=== PATIENT | male | born 1950 | race Caucasian/White ===

== ENCOUNTER 2018-02-12 21:45 | Inpatient (IN) | payer MEDICARE ==
[~2018-02-12] VITALS: Ht 170.2 cm; Wt 65.3 kg
--- NOTE | 2018-02-12 21:56 | NUR ---
Dr. Collins at bedside for MSE.
--- NOTE | 2018-02-12 22:13 | NUR ---
Xray at bedside.
[2018-02-12 22:14] LABS: BASOPHILS % (AUTO) 0.6 % (0.0-2.0); EOSINOPHILS # (AUTO) 0.2 K/uL (0.0-0.7); EOSINOPHILS % (AUTO) 3.2 % (0.0-7.0); HEMOGLOBIN 12.9 g/dL (12.5-16.3); LYMPHOCYTES # (AUTO) 1.2 K/uL (20.0-40.0); LYMPHOCYTES % (AUTO) 19.5 % (20.5-51.5); MEAN CORPUSCULAR HEMOGLOBIN 37.1 uug (23.8-33.4); MEAN CORPUSCULAR HGB CONC 34 g/dL (32.5-36.3); MEAN CORPUSCULAR VOLUME 109.2 fL (73.0-96.2); MONOCYTES # (AUTO) 0.8 K/uL (2.0-10.0); NEUTROPHILS # (AUTO) 3.8 K/uL (1.8-8.9); NEUTROPHILS % (AUTO) 63.7 % (38.5-71.5); PLATELET COUNT (AUTO) 146 K/uL (152-348); RED BLOOD CELL COUNT(AUTO) 3.48 MIL/uL (4.06-5.63)
[2018-02-12] MEDS ORDERED: FOLI1TAB16 PO (22:17)
[2018-02-12] MEDS ORDERED: OLAN5TAB3 PO (22:17)
[2018-02-12] MEDS ORDERED: MIRT15TA7 PO (22:17)
[2018-02-12] MEDS ORDERED: THIA100T13 PO (22:17)
[2018-02-12] MEDS ORDERED: CYAN100T3 PO (22:17)
[2018-02-12] MEDS ORDERED: POLY255P2 PO (22:17)
[2018-02-12] MEDS ORDERED: TRAZ-182 PO (22:17)
[2018-02-12] MEDS ORDERED: ACET325T53 PO (22:17)
[2018-02-12] MEDS ORDERED: PANT40TA4 PO (22:17)
[2018-02-12] MEDS ORDERED: HALO1TAB PO (22:17)
[2018-02-12] MEDS ORDERED: MULT-213 PO (22:17)
[2018-02-12] MEDS ORDERED: NICO-625 TD (22:17)
[2018-02-12 22:25] LABS: CREATININE 0.9 mg/dL (0.6-1.3); POTASSIUM 4.3 mmol/L (3.5-5.1)
[2018-02-12 22:30] LABS: BILIRUBIN,DIRECT 0.1 mg/dL (0.0-0.2); BILIRUBIN,TOTAL 0.3 mg/dL (0.2-1.0); TOTAL PROTEIN, SERUM 6.5 g/dL (6.4-8.2)
[2018-02-12 22:38] LABS: THYROID STIMULATING HORMONE 3.67 mIU/mL (0.358-3.740)
--- NOTE | 2018-02-12 23:00 | NUR ---
Report given to Leti MENDOZA MHU.
[2018-02-12] MEDS ORDERED: LORAZEPAM 0.5 MG TABLET PO PRN (23:15)
[2018-02-12] MEDS ORDERED: LORAZEPAM 2 MG/1 ML VIAL IV ONE (23:15)
[2018-02-12] MEDS ORDERED: MAGNESIUM HYDROXIDE 30 ML LIQUID UDC PO PRN (23:15)
[2018-02-12] MEDS ORDERED: MAG HYDROX/AL HYDROX/SIMETH 30 ML LIQUID UDC PO PRN (23:15)
[2018-02-12] MEDS ORDERED: LORAZEPAM 2 MG/1 ML VIAL ONE (23:29)
[2018-02-12] MEDS ORDERED: ZOLPIDEM 5 MG TABLET PO PRN (23:45)
--- NOTE | 2018-02-12 23:55 | NUR ---
ADMISSION NOTE: PER 5150,Pt ARRIVED TO THE MEDICAL FLOOR AT [facility] FOR [facility]TOH-INDUCED PANCREATITIS AND DELIRIUM. Pt WAS THEN ADMITTED TO [facility] ON A HOLD FOR GD, BUT RETURNED TO [facility] FOR MEDICAL REASONS. HAS NO INSIGHT INTO SITUATION OR WHY HE WAS AT THE HOSPITAL. CONFUSED, DISORIENTED, AND AGITATED AT TIMES. UPON EVALUATION BY PSYCHIATRIST, Pt WAS VISUALLY HALLUCINATING SEEING HIS GIRLFRIEND IN BED. 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 REMAINS INTERMITTENTLY AGITATED WANTING TO LEAVE. UNABLE TO FORM A REASONABLE PLAN FOR SAFETY OR AFTERCARE DUE TO POOR JUDGEMENT AND IMPAIRED COGNITION. Pt GIVEN PATIENT RIGHTS HANDBOOK AND ADVISEMENT UPON ADMISSION. A+Ox1, Pt CONFUSED, DISORIENTED, AND FORGETFUL. DELUSIONAL, Pt BELIEVES HE IS IN [place], [place]. WHEN ASKED WHAT BROUGHT HIM TO THE HOSPITAL, Pt STATED, "I DON'T KNOW, I DON'T REMEMBER." Pt GIVES NON-SENSICAL AND IRRELEVANT ANSWERS TO QUESTIONS, IS DISORGANIZED AND TANGENTIAL IN THOUGHT PROCESS, REMAINS WITH POOR INSIGHT. Pt IS HYPERVERBAL AND EXHIBITS PRESSURED SPEECH WITH FLAT AFFECT. APPEARANCE IS DISHEVELED AND MALODOROUS, Pt URINATED ON HIMSELF DURING ASSESSMENT, AND WAS THEN SHOWERED WITH THE ASSISTANCE OF STAFF. Pt ORIENTED TO THE UNIT, THE PHONE, THE BATHROOMS, AND HIS ROOM. UNIT RULES AND PATIENT RIGHTS EXPLAINED, THOUGH Pt REQUIRES REINFORCEMENT D/T IMPAIRED COGNITION. UNABLE TO SIGN ADMISSION PAPERWORK D/T CONFUSION. PRESENTS WITH UNSTEADY GAIT, AND BLE WEAKNESS, FALLS PRECAUTIONS IMPLEMENTED, Q 15 MINUTE SAFETY CHECKS MAINTAINED. VS STABLE, DENIES PAIN. SKIN ASSESSMENT COMPLETED WITH LICENSED MALE STAFF PRESENT, 2 SMALL CIRCULAR SCABS NOTED TO (L) INNER GLUTEAL AREA, NO S/S OF INFECTION, Pt REFUSED PHOTOS OF HIS WOUND AND FACE. DR GUSMAN AND DR DUTTA NOTIFIED OF ADMISSION, ORDERS RECEIVED, MEDICATIONS RECONCILED. CONTRABAND PLACED IN UNIT LOCKER. IN NO ACUTE PHYSICAL DISTRESS.
[2018-02-13] MEDS ORDERED: LORAZEPAM 2 MG/1 ML VIAL IM ONE
[2018-02-13 07:05] LABS: BASOPHILS % (AUTO) 0.8 % (0.0-2.0); EOSINOPHILS # (AUTO) 0.3 K/uL (0.0-0.7); EOSINOPHILS % (AUTO) 5.6 % (0.0-7.0); HEMATOCRIT 38.3 % (36.7-47.1); HEMOGLOBIN 13.1 g/dL (12.5-16.3); LYMPHOCYTES # (AUTO) 1.3 K/uL (20.0-40.0); LYMPHOCYTES % (AUTO) 23.3 % (20.5-51.5); MEAN CORPUSCULAR HEMOGLOBIN 37.2 uug (23.8-33.4); MEAN CORPUSCULAR HGB CONC 34 g/dL (32.5-36.3); MEAN CORPUSCULAR VOLUME 108.9 fL (73.0-96.2); MONOCYTES # (AUTO) 0.7 K/uL (2.0-10.0); MONOCYTES % (AUTO) 13.4 % (0.0-11.0); NEUTROPHILS # (AUTO) 3.2 K/uL (1.8-8.9); NEUTROPHILS % (AUTO) 56.9 % (38.5-71.5); PLATELET COUNT (AUTO) 147 K/uL (152-348); RED BLOOD CELL COUNT(AUTO) 3.51 MIL/uL (4.06-5.63); WHITE BLOOD COUNT (AUTO) 5.6 K/uL (3.6-10.2)
[2018-02-13 07:30] VITALS: BP 103/68
[2018-02-13] MEDS ORDERED: PANTOPRAZOLE SODIUM 40 MG TABLET.DR PO SCH (07:30)
[2018-02-13 07:40] LABS: CREATININE 0.8 mg/dL (0.6-1.3); MAGNESIUM 1.6 mg/dL (1.8-2.4); PHOSPHOROUS 5.3 mg/dL (2.5-4.9); POTASSIUM 3.7 mmol/L (3.5-5.1)
[2018-02-13] MEDS: MIRALAX 17 GM POWD.PACK PO SCH (08:42)
[2018-02-13] MEDS: THIAMINE HCL 100 MG TABLET PO SCH (08:42)
[2018-02-13] MEDS: CYANOCOBALAMIN 100 MCG TABLET PO SCH (08:42)
[2018-02-13] MEDS: NICOTINE 14 MG/24HR PATCH TD SCH (08:42)
[2018-02-13] MEDS: FOLIC ACID 1 MG TABLET PO SCH (08:42)
[2018-02-13] MEDS: MULTIVIT, IRON, MIN NO. 8, FA TABLET PO SCH (08:42)
[2018-02-13] MEDS ORDERED: MIRALAX 17 GM POWD.PACK PO SCH (09:00)
[2018-02-13] MEDS ORDERED: LORAZEPAM 0.5 MG TABLET PO PRN (09:30)
[2018-02-13] MEDS ORDERED: MAGNESIUM OXIDE 400 MG TABLET PO ONE (12:00)
[2018-02-13] MEDS: LORAZEPAM 1 MG TABLET PO PRN ×2 (13:29→19:04)
[2018-02-13 17:23] VITALS: BP 92/72
[2018-02-13 19:56] VITALS: BP 80/53
--- NOTE | 2018-02-13 20:00 | NUR ---
Received patient in chair, oriented to name only. Was medicated with Ativan at 1900. No acute distress noted. Speech in whispering voice sometimes hard to understand. Doesn't remember reason why he's in the hospital. Reoriented to place and time. Fall and safety precautions maintained.
[2018-02-13 20:10] VITALS: BP 95/59
[2018-02-13] MEDS: QUETIAPINE FUMARATE 25 MG TABLET PO SCH ×2 (21:00→22:25)
--- NOTE | 2018-02-13 21:00 | NUR ---
Seroquel dose held for now. Hypotensive. Snacks provided. Will monitor.
[2018-02-13 21:05] VITALS: BP 93/58
--- NOTE | 2018-02-13 22:00 | NUR ---
Agitated, trying to get out of the chair. Tremulous. Ambulated with walker and assistance.
[2018-02-13 22:10] VITALS: BP 110/72
--- NOTE | 2018-02-13 22:20 | NUR ---
Seen by Battery Test Engineer. Back in chair but with increasing agitation. Mumbles at time; "someone orders me" patient states. But when asked for details patient has no appropriate answer. With flight of ideas. Seroquel dose given with Tylenol.
[2018-02-13] MEDS: ACETAMINOPHEN 325 MG TABLET PO PRN (22:24)
--- NOTE | 2018-02-13 23:00 | NUR ---
Sleeping after Seroquel and Tylenol. Remains in chair and with close monitoring.
--- NOTE | 2018-02-14 | NUR ---
Awake, trying to get out of the chair to stand up. Ambulated with walker and assistance, but patient is tremulous, unsteady. Advised appropriately and placed back in chair.
--- NOTE | 2018-02-14 00:17 | NUR ---
Extremely agitated. Banging on the table and became mildly combative with Zana BLACK TOP RAKER. Patient reoriented to place and reasons of his hospitalization. BP 82/41; asymptomatic. Snacks provided. Monitored closely.
--- NOTE | 2018-02-14 03:06 | NUR ---
Remains in chair with constant monitoring. Still with periods of agitation and combativeness. Very disoriented, confused. Unable to engaged in conversation; claims he has children but doesn't remember their names. States, he's in [facility]. Needs frequent redirection and reorientation. Fluid intake encouraged, but patient threw a cup of water to RN's back. BP=98/66.
[2018-02-14] MEDS: PANTOPRAZOLE SODIUM 40 MG TABLET.DR PO SCH (06:12)
[2018-02-14] MEDS: LORAZEPAM 1 MG TABLET PO PRN ×2 (06:12→22:17)
--- NOTE | 2018-02-14 06:40 | NUR ---
Slept for 1.3 hours. Ativan given at 0612; effective. Patient now calm and cooperative. Assisted to the BR; urine sample obtained and sent to lab.
[2018-02-14 07:30] VITALS: BP 86/45
[2018-02-14 07:48] LABS: *BILIRUBIN,URIN NEGATIVE (NEGATIVE); *BLOOD, URINE NEGATIVE (NEGATIVE); *CLARITY,URINE CLEAR (CLEAR); *COLOR,URINE YELLOW (YELLOW); *KETONES,URINE NEGATIVE (NEGATIVE); *PROTEIN,URINE NEGATIVE (NEGATIVE); LEUKOCYTE ESTERASE ,URINE NEGATIVE (NEGATIVE); NITRITE, URINE NEGATIVE (NEGATIVE); PH,URINE 5.5 (5.0-8.0); UGLUCOSE NEGATIVE (NEGATIVE)
[2018-02-14 07:58] LABS: CREATININE 0.9 mg/dL (0.6-1.3); POTASSIUM 3.5 mmol/L (3.5-5.1)
[2018-02-14 08:08] LABS: BACTERIA,URINE FEW /HPF (NONE SEEN); MUCUS,URINE FEW /LPF (0-FEW); RBC,URINE NONE SEEN /HPF (0-3); SQUAMOUS EPITHELIAL CELL,UR FEW /HPF (NONE SEEN); WBC,URINE 0-3 /HPF (0-3)
[2018-02-14 08:12] LABS: *AMPHETAMINE, URINE NEGATIVE (NEGATIVE); *BARBITURATE, URINE NEGATIVE (NEGATIVE); *CANNABINOID, URINE NEGATIVE (NEGATIVE); *COCCAINE, URINE NEGATIVE (NEGATIVE); *OPIATE, URINE NEGATIVE (NEGATIVE); *PHENCYCLIDINE SCREEN,URINE NEGATIVE (NEGATIVE)
[2018-02-14] MEDS: FOLIC ACID 1 MG TABLET PO SCH (08:39)
[2018-02-14] MEDS: CYANOCOBALAMIN 100 MCG TABLET PO SCH (08:39)
[2018-02-14] MEDS: MIRALAX 17 GM POWD.PACK PO SCH (08:39)
[2018-02-14] MEDS: NICOTINE 14 MG/24HR PATCH TD SCH (08:39)
[2018-02-14] MEDS: MULTIVIT, IRON, MIN NO. 8, FA TABLET PO SCH (08:39)
[2018-02-14] MEDS: THIAMINE HCL 100 MG TABLET PO SCH (08:39)
--- NOTE | 2018-02-14 13:58 | NUR ---
Initial Discharge Plan: Patient is homeless and will need SNF placement due to current level of functioning. Patient has Medicare Part A ONLY. Patient's brother, Mario Alberto [[phone]] is aware and agreeable to patient being placed at a SNF. mold yard worker will collaborate with MD for patient plan of care. mold yard worker will continue to work on a safe and proper discharge plan.
[2018-02-14 16:07] VITALS: BP 103/55
--- NOTE | 2018-02-14 18:08 | NUR ---
AGITATED, SITTER AT BEDSIDE. EATING WELL WITH ASSIST. ENCOURAGED TO TOILET. WATCHING TV AT THIS TIME. WILL CONT TO MONITOR.
[2018-02-14 19:31] VITALS: BP 118/74
[2018-02-14] MEDS: QUETIAPINE FUMARATE 25 MG TABLET PO SCH (20:58)
[2018-02-14] MEDS ORDERED: QUETIAPINE FUMARATE 25 MG TABLET PO SCH (21:00)
--- NOTE | 2018-02-14 21:30 | NUR ---
received to care, up in efrain chair, appearing restless, and agitated, mumbling to self, 1;1 sitter remains at side, for safety. compliant with medications and staff direction. po fluids given. as of 2129, he remains restless, but easy to redirect. will continue to monitor closely.
[2018-02-14] MEDS: ACETAMINOPHEN 325 MG TABLET PO PRN (22:16)
--- NOTE | 2018-02-14 22:17 | NUR ---
remains agitated, and restless. PRN ativan was given, at this time. sitter remains at bedside.
[2018-02-15] MEDS: PANTOPRAZOLE SODIUM 40 MG TABLET.DR PO SCH (07:00)
[2018-02-15 08:00] VITALS: BP 89/53
--- NOTE | 2018-02-15 08:30 | NUR ---
Gps/Tube Repairer- Asleep during the initial rounds, no distress .Had low B/P initial check 89/53 HR 68 . Out of bed to the bathroom w/ 2 staff assisting, patient , patient needed verbal cueing, stiffness to extremities, figity and occ. fine tremors noted when initiating tasks. Voided, dark frances urine, fluids offered, encouraged, needed assist with meals r/t to focc fine tremors and stiffness when initiating simple tasks. Remains on 1:1 Nirsing supervision (sitter) for safety.
[2018-02-15 09:00] VITALS: BP 121/77
[2018-02-15] MEDS: THIAMINE HCL 100 MG TABLET PO SCH (09:08)
[2018-02-15] MEDS: MIRALAX 17 GM POWD.PACK PO SCH (09:08)
[2018-02-15] MEDS: FOLIC ACID 1 MG TABLET PO SCH (09:08)
[2018-02-15] MEDS: MULTIVIT, IRON, MIN NO. 8, FA TABLET PO SCH (09:08)
[2018-02-15] MEDS: CYANOCOBALAMIN 100 MCG TABLET PO SCH (09:08)
[2018-02-15] MEDS: NICOTINE 14 MG/24HR PATCH TD SCH (09:09)
[2018-02-15 20:00] VITALS: BP 114/68
[2018-02-15] MEDS: QUETIAPINE FUMARATE 25 MG TABLET PO SCH (20:03)
--- NOTE | 2018-02-15 22:00 | NUR ---
received to care, up in efrain chair, pleasant, but confused, upon approach. 1 to 1 sitter remains at side, for safety. compliant with medications and staff direction. as of 2199, he appears to be asleep. no distress noted, will continue to monitor closely.
--- NOTE | 2018-02-16 06:30 | NUR ---
slept 7.5 hours total. continues to sleep. sitter remains at side. no distress noted.
[2018-02-16 07:14] LABS: BASOPHILS % (AUTO) 0.7 % (0.0-2.0); EOSINOPHILS # (AUTO) 0.2 K/uL (0.0-0.7); EOSINOPHILS % (AUTO) 5.6 % (0.0-7.0); HEMATOCRIT 37.1 % (36.7-47.1); HEMOGLOBIN 12.9 g/dL (12.5-16.3); LYMPHOCYTES # (AUTO) 1.2 K/uL (20.0-40.0); LYMPHOCYTES % (AUTO) 27.2 % (20.5-51.5); MEAN CORPUSCULAR HEMOGLOBIN 37.5 uug (23.8-33.4); MEAN CORPUSCULAR HGB CONC 35 g/dL (32.5-36.3); MEAN CORPUSCULAR VOLUME 107.9 fL (73.0-96.2); MONOCYTES # (AUTO) 0.6 K/uL (2.0-10.0); MONOCYTES % (AUTO) 13.8 % (0.0-11.0); NEUTROPHILS # (AUTO) 2.4 K/uL (1.8-8.9); NEUTROPHILS % (AUTO) 52.7 % (38.5-71.5); PLATELET COUNT (AUTO) 172 K/uL (152-348); RED BLOOD CELL COUNT(AUTO) 3.44 MIL/uL (4.06-5.63); WHITE BLOOD COUNT (AUTO) 4.5 K/uL (3.6-10.2)
[2018-02-16] MEDS: PANTOPRAZOLE SODIUM 40 MG TABLET.DR PO SCH (07:24)
[2018-02-16 07:25] LABS: CREATININE 0.8 mg/dL (0.6-1.3); MAGNESIUM 1.7 mg/dL (1.8-2.4); PHOSPHOROUS 4.1 mg/dL (2.5-4.9); POTASSIUM 3.5 mmol/L (3.5-5.1)
[2018-02-16 07:30] VITALS: BP 100/56
[2018-02-16] MEDS: CYANOCOBALAMIN 100 MCG TABLET PO SCH (08:27)
[2018-02-16] MEDS: FOLIC ACID 1 MG TABLET PO SCH (08:27)
[2018-02-16] MEDS: MIRALAX 17 GM POWD.PACK PO SCH (08:27)
[2018-02-16] MEDS: MULTIVIT, IRON, MIN NO. 8, FA TABLET PO SCH (08:27)
[2018-02-16] MEDS: THIAMINE HCL 100 MG TABLET PO SCH (08:27)
[2018-02-16] MEDS: NICOTINE 14 MG/24HR PATCH TD SCH (08:28)
--- NOTE | 2018-02-16 08:31 | NUR ---
Discharge Note: Patient will be discharged to [facility] [[address] [place] [address]; ] and transportation will be provided by ambulance at 11:00am. Please arrange ambulance transportation for patient. Patient is aware and agreeable with discharge plan. contact worker lithography called and spoke with Mario Alberto, jay jay brother [[phone]], informing him of patient discharge. Patient is alert and oriented x1 and denies any SI/HI. Patient will follow-up with Dr. Tabares (electric tool repairer) Dr. Rocha (psychiatrist). Patient was given outpatient mental health resources [facility] Crisis Line , [employer] , and the National Suicide Prevention Lifeline . Pt was also provided with a brief substance abuse intervention and provided with the following resources [facility] ([place]) [[phone]], [facility] [employer] [ ], Substance Abuse and Mental Health Services Administration ([facility]) National Helpline [0-639-960-HELP (3430)]. Pt has been made aware and understanding of all referrals and resources. Addendum: 02/16/18 at 0939 by CHRISTIANO WHITE Additional information: Patient is accepted to [facility] and room number is 19A. Addendum: 02/16/18 at 1104 by CHRISTIANO DARLING SW Additional Information: Bed change: 34P
--- NOTE | 2018-02-16 10:32 | NUR ---
Gps/General Sales Manager- Called report to Jacinta Garrett, report given to Nursing Psychology Department Chair Mildred.Patient was well informed of his discharged.
--- NOTE | 2018-02-16 11:15 | NUR ---
Gps/Tire Groover- Discharged to [facility] via ambulance, all belongings given back to patient. Discharged in good spirit with no new complaints noted.
--- NOTE | 2018-02-16 13:46 | NUR ---
GPS/RN- PATIENT WITH LOW MAG LEVEL TODAY, MAG 1.7. CONTACTED THE MEDICAL [facility], ORDERS RECEIVED FROM Norman HERNANDEZ.P. FOR MAG OX 800MG BY MOUTH ONE DOSE, CONTACTED FACILITY SPOKE WITH TOSHA CHARGE NURSE, ORDER FAXED TO [phone]. FAX CONFIRMATION IN CHART.
== END 2018-02-16 11:15 | DRG 885 ==
LOC: ER 21:49 → GPS 23:00
PROVIDERS: ADMIT Psychiatry & Neurology Psychiatry; ATTEND Internal Medicine
DX: F29 Unspecified psychosis not due to a substance or known physiological condition (principal); E44.0 Moderate protein-calorie malnutrition; E51.2 Wernicke's encephalopathy; Z59.0 Homelessness; F32.9 Major depressive disorder, single episode, unspecified; E88.09 Other disorders of plasma-protein metabolism, not elsewhere classified; E83.42 Hypomagnesemia; F17.210 Nicotine dependence, cigarettes, uncomplicated; Z68.22 Body mass index [BMI] 22.0-22.9, adult; F10.21 Alcohol dependence, in remission; G31.2 Degeneration of nervous system due to alcohol
CPT/HCPCS: 36415; 70450; 71045; 80307; 82746; 83735; 84100; 84443; 85025; 87086; 93005; 97110; 97116; 97530; A4663; J2060